=== PATIENT | female | born 1995 | race Caucasian/White ===

== ENCOUNTER 2017-01-05 13:25 | Emergency (ER) | payer MEDICAID, OTHER ==
[~2017-01-05] VITALS: Ht 157.5 cm; Wt 52.3 kg
[2017-01-05 13:52] LABS: BASOPHILS % (AUTO) 0.4 % (0.0-2.0); EOSINOPHILS % (AUTO) 1.4 % (1.0-6.0); HEMATOCRIT 36.8 % (36-46); HEMOGLOBIN 11.7 g/dL (12.0-16.0); LYMPHOCYTES # (AUTO) 1.8 K/uL (1.0-4.8); LYMPHOCYTES % (AUTO) 28.1 % (22.0-44.0); MEAN CORPUSCULAR HEMOGLOBIN 28.2 pg (26.0-34.0); MEAN CORPUSCULAR HGB CONC 31.8 G/dL (31.0-37.0); MEAN CORPUSCULAR VOLUME 88 fL (80-100); MONOCYTES # (AUTO) 0.4 K/uL (0.1-1.0); MONOCYTES % (AUTO) 5.6 % (2.0-9.0); NEUTROPHILS # (AUTO) 4.1 K/uL (1.8-7.7); NEUTROPHILS % (AUTO) 64.5 % (40.0-70.0); PLATELET COUNT (AUTO) 332 K/uL (150-450); RED BLOOD CELL COUNT(AUTO) 4.16 MIL/uL (4.00-5.20); RED CELL DISTRIBUTION WIDTH 15.1 % (11.5-14.5); WHITE BLOOD COUNT (AUTO) 6.3 K/uL (4.5-11.0)
[2017-01-05 14:01] LABS: ANION GAP 6 mmol/L (8-16); CALCIUM, TOTAL 9.4 mg/dL (8.8-10.5); CARBON DIOXIDE 30 mmol/L (22-29); CHLORIDE 104 mmol/L (98-107); GLOMERULAR FILTR. RATE CALC > 60 mL/min (>60); SODIUM SERUM 140 mmol/L (136-145); UREA NITROGEN, BLOOD 10 mg/dL (7-18)
[2017-01-05 14:07] LABS: ALANINE AMINOTRANSFERASE 24 U/L (12-78); ASPARTATE AMINOTRANSFERASE 14 U/L (15-37); BILIRUBIN,TOTAL 0.3 mg/dL (0.1-1.0); TOTAL PROTEIN, SERUM 7.7 g/dL (6.4-8.2)
[2017-01-05 18:51] VITALS: BP 110/64
== END 2017-01-05 18:53 | disposition home or self-care (01) ==
LOC: EEVIPCON 13:27 → EMS 13:27
DX: F32.9 Major depressive disorder, single episode, unspecified (principal); S61.512A Laceration without foreign body of left wrist, initial encounter; F17.210 Nicotine dependence, cigarettes, uncomplicated; X78.9XXA Intentional self-harm by unspecified sharp object, initial encounter; Y93.89 Activity, other specified; Y92.89 Other specified places as the place of occurrence of the external cause; Y99.8 Other external cause status
CPT/HCPCS: 36415; 80053; 80307; 84703; 85025; 99285; G0480

== ENCOUNTER 2017-10-01 22:34 | Emergency (ER) | payer SELFPAY ==
[~2017-10-01] VITALS: Ht 157.5 cm; Wt 56.8 kg
[2017-10-01] MEDS ORDERED: BACITRACIN 0.9 GM PACKET OINTMENT TP ONE (23:15)
[2017-10-01 23:46] VITALS: BP 119/68
== END 2017-10-01 23:52 | disposition home or self-care (01) ==
LOC: EMS 22:35
DX: S61.411A Laceration without foreign body of right hand, initial encounter (principal); S61.216A Laceration without foreign body of right little finger without damage to nail, initial encounter; S50.811A Abrasion of right forearm, initial encounter; F17.210 Nicotine dependence, cigarettes, uncomplicated; W25.XXXA Contact with sharp glass, initial encounter; Y93.89 Activity, other specified; Y92.89 Other specified places as the place of occurrence of the external cause; Y99.8 Other external cause status
CPT/HCPCS: 99284

== ENCOUNTER 2018-01-19 20:36 | Emergency (ER) | payer OTHER ==
[~2018-01-19] VITALS: Ht 157.5 cm; Wt 60.0 kg
[2018-01-19] MEDS ORDERED: KETOROLAC TROMETHAMINE 60 MG/2 ML VIAL IM ONE (22:00)
[2018-01-19 22:15] VITALS: BP 122/68
== END 2018-01-19 22:15 | disposition home or self-care (01) ==
LOC: EMS 20:37
DX: S46.911A Strain of unspecified muscle, fascia and tendon at shoulder and upper arm level, right arm, initial encounter (principal); F17.210 Nicotine dependence, cigarettes, uncomplicated; X58.XXXA Exposure to other specified factors, initial encounter; Y93.89 Activity, other specified; Y92.89 Other specified places as the place of occurrence of the external cause; Y99.8 Other external cause status
CPT/HCPCS: 81025; 96372; 99283; J1885

== ENCOUNTER 2018-06-06 16:32 | Emergency (ER) | payer OTHER ==
[~2018-06-06] VITALS: Ht 157.5 cm; Wt 59.1 kg
[2018-06-06 16:37] VITALS: BP 139/58
== END 2018-06-06 17:02 | disposition left against medical advice (07) ==
LOC: EMS 16:33
DX: R42 Dizziness and giddiness (principal); Z53.21 Procedure and treatment not carried out due to patient leaving prior to being seen by health care provider

== ENCOUNTER 2018-07-19 19:33 | Emergency (ER) | payer OTHER ==
[~2018-07-19] VITALS: Ht 157.5 cm; Wt 56.4 kg
[2018-07-19] MEDS ORDERED: DIAZEPAM 5 MG TABLET PO ONE (21:45)
[2018-07-19 22:15] VITALS: BP 127/78
== END 2018-07-19 22:34 | disposition home or self-care (01) ==
LOC: EMS 19:34
DX: F41.9 Anxiety disorder, unspecified (principal); H81.10 Benign paroxysmal vertigo, unspecified ear

== ENCOUNTER 2018-07-24 20:27 | Inpatient (IN) | payer MEDICAID, OTHER ==
[~2018-07-24] VITALS: Ht 157.5 cm; Wt 53.5 kg
[2018-07-24] MEDS ORDERED: MECL12.585 PO (20:47)
[2018-07-24 21:01] LABS: AMPHET/METH SCREEN,URINE NEGATIVE (NEGATIVE); BARBITURATE SCREEN, URINE NEGATIVE (NEGATIVE); BENZODIAZEPINES SCREEN,URINE POSITIVE (NEGATIVE); CANNABINOID SCREEN,URINE NEGATIVE (NEGATIVE); COCAINE SCREEN,URINE NEGATIVE (NEGATIVE); METHADONE SCREEN, URINE NEGATIVE (NEGATIVE); OPIATE SCREEN,URINE NEGATIVE (NEGATIVE); PHENCYCLIDINE SCREEN,URINE NEGATIVE (NEGATIVE)
[2018-07-24 21:06] LABS: BASOPHILS % (AUTO) 0.7 % (0.0-2.0); EOSINOPHILS % (AUTO) 1.3 % (1.0-6.0); HEMATOCRIT 37.6 % (36-46); HEMOGLOBIN 12.6 g/dL (12.0-16.0); LYMPHOCYTES # (AUTO) 1.7 K/uL (1.0-4.8); MEAN CORPUSCULAR HEMOGLOBIN 30.6 pg (26.0-34.0); MEAN CORPUSCULAR HGB CONC 33.6 G/dL (31.0-37.0); MEAN CORPUSCULAR VOLUME 91 fL (80-100); MONOCYTES # (AUTO) 0.4 K/uL (0.1-1.0); MONOCYTES % (AUTO) 5.8 % (2.0-9.0); NEUTROPHILS # (AUTO) 4.2 K/uL (1.8-7.7); NEUTROPHILS % (AUTO) 66.2 % (40.0-70.0); PLATELET COUNT (AUTO) 236 K/uL (150-450); RED BLOOD CELL COUNT(AUTO) 4.12 MIL/uL (4.00-5.20); RED CELL DISTRIBUTION WIDTH 13.5 % (11.5-14.5)
[2018-07-24 21:22] LABS: ANION GAP 12 mmol/L (8-16); CALCIUM, TOTAL 9.7 mg/dL (8.8-10.5); CARBON DIOXIDE 24 mmol/L (22-29); CHLORIDE 104 mmol/L (98-107); CREATININE 0.77 mg/dL (0.60-1.30); GLOMERULAR FILTR. RATE CALC > 60 mL/min (>60); GLUCOSE,RANDOM 113 mg/dL (70-110); POTASSIUM 3.4 mmol/L (3.5-5.1); SODIUM SERUM 140 mmol/L (136-145); UREA NITROGEN, BLOOD 5 mg/dL (7-18)
[2018-07-24 21:28] LABS: ALANINE AMINOTRANSFERASE 18 U/L (12-78); ALBUMIN 4.1 g/dL (3.4-5.0); ALKALINE PHOSPHATASE 53 U/L (46-116); ASPARTATE AMINOTRANSFERASE 13 U/L (15-37); BILIRUBIN,TOTAL 0.4 mg/dL (0.1-1.0); TOTAL PROTEIN, SERUM 7.6 g/dL (6.4-8.2)
[2018-07-24] MEDS ORDERED: LORazepam 2 MG TABLET PO ONE (21:30)
[2018-07-24 21:46] LABS: HCG,QUANTITATIVE < 1 mIU/mL (0-6)
[2018-07-24] MEDS ORDERED: POTASSIUM CHLORIDE 20 MEQ ER TABLET PO ONE (22:15)
[2018-07-25] MEDS ORDERED: HALOPERIDOL 5 MG TABLET PO PRN (01:15)
[2018-07-25] MEDS ORDERED: ZOLPIDEM TARTRATE 10 MG TABLET PO PRN (01:15)
[2018-07-25 03:26] LABS: APPEARANCE,URINE CLOUDY (CLEAR); BILIRUBIN,URINE NEGATIVE (NEGATIVE); GLUCOSE, URINE (UA) NEGATIVE (NEGATIVE); KETONES,URINE >=80 mg/dL (NEGATIVE); LEUKOCYTE ESTERASE ,URINE NEGATIVE (NEGATIVE); NITRATE,URINE NEGATIVE (NEGATIVE); OCCULT BLOOD,URINE NEGATIVE (NEGATIVE); PH,URINE 7.5 (5.0-8.0); PROTEIN,URINE NEGATIVE (NEGATIVE); UROBILINOGEN,URINE 0.2 mg/dL (<=1.0)
[2018-07-25 04:20] VITALS: BP 120/83
[2018-07-25 08:00] VITALS: BP 122/76
[2018-07-25] MEDS ORDERED: IBUPROFEN 400 MG TABLET PO PRN ×2 (09:00→10:45)
[2018-07-25] MEDS ORDERED: ACETAMINOPHEN 325 MG TABLET PO PRN ×2 (09:00→10:45)
[2018-07-25] MEDS ORDERED: DOCUSATE SODIUM 100 MG CAPSULE PO PRN (10:45)
[2018-07-25] MEDS ORDERED: NICOTINE 14 MG/24 HOUR PATCH TD PRN (10:45)
[2018-07-25] MEDS ORDERED: ONDANSETRON HCL 4 MG TABLET PO PRN (10:45)
[2018-07-25] MEDS ORDERED: MAGNESIUM HYDROXIDE SUSPENSION 30 ML UDCUP PO PRN (10:45)
[2018-07-25] MEDS ORDERED: GuaiFENesin/D-METHORPHAN [SUGAR-FREE] 200-20MG/10 ML SYRUP UDCUP PO PRN (10:45)
[2018-07-25] MEDS ORDERED: LOPERAMIDE HCL 2 MG CAPSULE PO PRN (10:45)
[2018-07-25] MEDS ORDERED: CloNIDine HCL 0.1 MG TABLET PO PRN (10:45)
[2018-07-25] MEDS ORDERED: PETROLATUM,WHITE 71 GM JELLY TP PRN (10:45)
[2018-07-25] MEDS ORDERED: MAG HYDROX/AL HYDROX/SIMETH ES 30 ML SUSPENSION UDCUP PO PRN (10:45)
[2018-07-25] MEDS ORDERED: ALBUTEROL SULFATE HFA 90 MCG/PUFF 8 GM INHALER IH PRN (10:45)
[2018-07-25] MEDS: LORazepam 2 MG TABLET PO PRN (11:31)
[2018-07-25] MEDS: OLANZapine 5 MG TABLET PO SCH (16:20)
[2018-07-25] MEDS: FLUoxetine HCL 20 MG CAPSULE PO SCH (16:20)
[2018-07-25 16:42] VITALS: BP 114/76
[2018-07-26 07:07] LABS: HEMOGLOBIN A1C 4.9 % (4.5-6.2)
[2018-07-26 07:42] LABS: ALANINE AMINOTRANSFERASE 15 U/L (12-78); ALBUMIN 3.6 g/dL (3.4-5.0); ALKALINE PHOSPHATASE 45 U/L (46-116); ANION GAP 7 mmol/L (8-16); ASPARTATE AMINOTRANSFERASE 14 U/L (15-37); BILIRUBIN,TOTAL 0.4 mg/dL (0.1-1.0); CALCIUM, TOTAL 8.8 mg/dL (8.8-10.5); CARBON DIOXIDE 28 mmol/L (22-29); CHLORIDE 107 mmol/L (98-107); CHOLESTEROL 141 mg/dL (131-200); CREATININE 0.87 mg/dL (0.60-1.30); GLOMERULAR FILTR. RATE CALC > 60 mL/min (>60); GLUCOSE,RANDOM 89 mg/dL (70-110); HDL CHOLESTEROL 35 mg/dL (40-60); LDL CHOL (CALC.) 84 mg/dL (0-130); POTASSIUM 4.1 mmol/L (3.5-5.1); SODIUM SERUM 142 mmol/L (136-145); THYROID STIMULATING HORMONE 0.66 uIU/mL (0.36-3.74); TOTAL PROTEIN, SERUM 6.7 g/dL (6.4-8.2); TRIGLYCERIDES 111 mg/dL (15-150); UREA NITROGEN, BLOOD 6 mg/dL (7-18)
[2018-07-26 08:28] VITALS: BP 109/79
[2018-07-26] MEDS: MECLIZINE HCL 12.5 MG TABLET PO SCH (09:00)
[2018-07-26] MEDS: FLUoxetine HCL 20 MG CAPSULE PO SCH (09:00)
[2018-07-26] MEDS: OLANZapine 5 MG TABLET PO SCH (09:00)
[2018-07-26 16:55] VITALS: BP 115/74
[2018-07-27] MEDS: LORazepam 2 MG TABLET PO PRN (00:47)
[2018-07-27 02:39] VITALS: BP 135/75
[2018-07-27] MEDS: OLANZapine 5 MG TABLET PO SCH (08:46)
[2018-07-27] MEDS: MECLIZINE HCL 12.5 MG TABLET PO SCH (08:46)
[2018-07-27] MEDS: FLUoxetine HCL 20 MG CAPSULE PO SCH (08:46)
[2018-07-27 17:04] VITALS: BP 124/89
[2018-07-28 08:00] VITALS: BP 117/81
[2018-07-28] MEDS: FLUoxetine HCL 20 MG CAPSULE PO SCH (09:02)
[2018-07-28] MEDS: MECLIZINE HCL 12.5 MG TABLET PO SCH (09:02)
[2018-07-28] MEDS: OLANZapine 5 MG TABLET PO SCH (09:02)
[2018-07-28 16:25] VITALS: BP 127/84
[2018-07-28] MEDS ORDERED: FLUO-191 PO (17:31)
[2018-07-28] MEDS ORDERED: OLAN5TAB2 PO (17:32)
== END 2018-07-28 18:00 | disposition home or self-care (01) | DRG 753 ==
LOC: EMS 20:28 → 3EC 07-25 02:27
PROVIDERS: ADMIT Psychiatry & Neurology Child & Adolescent Psychiatry; ATTEND Psychiatry & Neurology Child & Adolescent Psychiatry
DX: F31.4 Bipolar disorder, current episode depressed, severe, without psychotic features (principal); R45.851 Suicidal ideations; E87.6 Hypokalemia; F41.9 Anxiety disorder, unspecified; G47.00 Insomnia, unspecified; R42 Dizziness and giddiness
CPT/HCPCS: 83036; 84443; 93005; G0480

== ENCOUNTER 2018-07-31 17:26 | Inpatient (IN) | payer MEDICAID, OTHER ==
[~2018-07-31] VITALS: Ht 157.5 cm; Wt 50.1 kg
[~2018-07-31 17:26] MED LIST: FLUO-191 PO; MECL12.585 PO; OLAN5TAB2 PO
[2018-07-31] MEDS ORDERED: OLANZapine 5 MG TABLET PO ONE (18:30)
[2018-07-31 18:40] LABS: BASOPHILS % (AUTO) 0.4 % (0.0-2.0); EOSINOPHILS % (AUTO) 0.9 % (1.0-6.0); HEMATOCRIT 39.3 % (36-46); HEMOGLOBIN 13.3 g/dL (12.0-16.0); LYMPHOCYTES # (AUTO) 1.7 K/uL (1.0-4.8); LYMPHOCYTES % (AUTO) 17.4 % (22.0-44.0); MEAN CORPUSCULAR HEMOGLOBIN 31.1 pg (26.0-34.0); MEAN CORPUSCULAR HGB CONC 33.9 G/dL (31.0-37.0); MEAN CORPUSCULAR VOLUME 92 fL (80-100); MONOCYTES # (AUTO) 0.6 K/uL (0.1-1.0); MONOCYTES % (AUTO) 6.1 % (2.0-9.0); NEUTROPHILS # (AUTO) 7.1 K/uL (1.8-7.7); NEUTROPHILS % (AUTO) 75.2 % (40.0-70.0); PLATELET COUNT (AUTO) 327 K/uL (150-450); RED BLOOD CELL COUNT(AUTO) 4.28 MIL/uL (4.00-5.20); RED CELL DISTRIBUTION WIDTH 13.7 % (11.5-14.5)
[2018-07-31] MEDS ORDERED: LORazepam 2 MG TABLET PO ONE (18:45)
[2018-07-31 18:47] LABS: ANION GAP 17 mmol/L (8-16); CALCIUM, TOTAL 9.9 mg/dL (8.8-10.5); CARBON DIOXIDE 21 mmol/L (22-29); CHLORIDE 101 mmol/L (98-107); CREATININE 0.87 mg/dL (0.60-1.30); GLOMERULAR FILTR. RATE CALC > 60 mL/min (>60); GLUCOSE,RANDOM 86 mg/dL (70-110); POTASSIUM 4.6 mmol/L (3.5-5.1); SODIUM SERUM 139 mmol/L (136-145); UREA NITROGEN, BLOOD 16 mg/dL (7-18)
[2018-07-31 18:53] LABS: ALANINE AMINOTRANSFERASE 24 U/L (12-78); ALBUMIN 4.6 g/dL (3.4-5.0); ALKALINE PHOSPHATASE 60 U/L (46-116); ASPARTATE AMINOTRANSFERASE 18 U/L (15-37); BILIRUBIN,TOTAL 0.7 mg/dL (0.1-1.0); TOTAL PROTEIN, SERUM 8.3 g/dL (6.4-8.2)
[2018-07-31 21:55] VITALS: BP 115/62
[2018-08-01 06:04] VITALS: BP 110/72
[2018-08-01 08:18] VITALS: BP 109/62
[2018-08-01] MEDS ORDERED: MECLIZINE HCL 12.5 MG TABLET PO SCH (10:30)
[2018-08-01] MEDS: OLANZapine 5 MG TABLET PO SCH (10:30)
[2018-08-01] MEDS: FLUoxetine HCL 20 MG CAPSULE PO SCH (10:45)
[2018-08-01] MEDS ORDERED: PIPERONYL BUTOXIDE/PYRETHRINS 120 ML SHAMPOO TP ONE (13:30)
[2018-08-01] MEDS ORDERED: CloNIDine HCL 0.1 MG TABLET PO PRN (14:15)
[2018-08-01] MEDS ORDERED: IBUPROFEN 400 MG TABLET PO PRN (14:15)
[2018-08-01] MEDS ORDERED: DOCUSATE SODIUM 100 MG CAPSULE PO PRN (14:15)
[2018-08-01] MEDS ORDERED: NICOTINE 14 MG/24 HOUR PATCH TD PRN (14:15)
[2018-08-01] MEDS ORDERED: GuaiFENesin/D-METHORPHAN [SUGAR-FREE] 200-20MG/10 ML SYRUP UDCUP PO PRN (14:15)
[2018-08-01] MEDS ORDERED: MAG HYDROX/AL HYDROX/SIMETH ES 30 ML SUSPENSION UDCUP PO PRN (14:15)
[2018-08-01] MEDS ORDERED: LOPERAMIDE HCL 2 MG CAPSULE PO PRN (14:15)
[2018-08-01] MEDS ORDERED: PETROLATUM,WHITE 71 GM JELLY TP PRN (14:15)
[2018-08-01] MEDS ORDERED: ACETAMINOPHEN 325 MG TABLET PO PRN (14:15)
[2018-08-01] MEDS ORDERED: ONDANSETRON HCL 4 MG TABLET PO PRN (14:15)
[2018-08-01] MEDS ORDERED: MAGNESIUM HYDROXIDE SUSPENSION 30 ML UDCUP PO PRN (14:15)
[2018-08-01] MEDS ORDERED: ALBUTEROL SULFATE HFA 90 MCG/PUFF 8 GM INHALER IH PRN (14:15)
[2018-08-01 16:17] VITALS: BP 110/64
[2018-08-01] MEDS: LORazepam 2 MG TABLET PO PRN (20:24)
[2018-08-02 07:12] VITALS: BP 108/68
[2018-08-02 08:28] VITALS: BP 107/75
[2018-08-02] MEDS: OLANZapine 5 MG TABLET PO SCH (08:40)
[2018-08-02] MEDS: FLUoxetine HCL 20 MG CAPSULE PO SCH (08:40)
[2018-08-02] MEDS: LORazepam 2 MG TABLET PO PRN (08:49)
[2018-08-02 16:42] VITALS: BP 125/76
[2018-08-02] MEDS: ZOLPIDEM TARTRATE 10 MG TABLET PO PRN (22:31)
[2018-08-03] MEDS: LORazepam 2 MG TABLET PO PRN ×2 (00:59→08:53)
[2018-08-03 01:29] VITALS: BP 119/75
[2018-08-03 08:35] VITALS: BP 125/83
[2018-08-03] MEDS: HALOPERIDOL 5 MG TABLET PO PRN (08:53)
[2018-08-03] MEDS: FLUoxetine HCL 20 MG CAPSULE PO SCH (08:54)
[2018-08-03] MEDS: OLANZapine 5 MG TABLET PO SCH (08:54)
[2018-08-03 19:00] VITALS: BP 123/74
[2018-08-04 06:34] VITALS: BP 116/82
[2018-08-04] MEDS: HALOPERIDOL 5 MG TABLET PO PRN (08:19)
[2018-08-04] MEDS: OLANZapine 5 MG TABLET PO SCH (08:19)
[2018-08-04] MEDS: LORazepam 2 MG TABLET PO PRN ×2 (08:19→22:13)
[2018-08-04] MEDS: FLUoxetine HCL 20 MG CAPSULE PO SCH (08:19)
[2018-08-04 08:30] VITALS: BP 116/69
[2018-08-04 16:06] VITALS: BP_SYST 108; BP_SYST 124; BP_DIAS 71; BP_DIAS 72
[2018-08-04] MEDS: ZOLPIDEM TARTRATE 10 MG TABLET PO PRN (22:13)
[2018-08-05 04:45] VITALS: BP 112/70
[2018-08-05 08:14] VITALS: BP 107/65
[2018-08-05] MEDS: OLANZapine 5 MG TABLET PO SCH (08:50)
[2018-08-05] MEDS: FLUoxetine HCL 20 MG CAPSULE PO SCH (08:50)
[2018-08-05 16:07] VITALS: BP 111/65
[2018-08-05] MEDS: LORazepam 2 MG TABLET PO PRN (18:52)
[2018-08-06 06:33] VITALS: BP 126/74
[2018-08-06 08:23] VITALS: BP 116/71
[2018-08-06] MEDS: OLANZapine 5 MG TABLET PO SCH (09:06)
[2018-08-06] MEDS: FLUoxetine HCL 20 MG CAPSULE PO SCH (09:06)
[2018-08-06] MEDS ORDERED: PIPERONYL BUTOXIDE/PYRETHRINS 120 ML SHAMPOO TP ONE (11:45)
[2018-08-06] MEDS: LORazepam 2 MG TABLET PO PRN (13:24)
[2018-08-06 16:04] VITALS: BP_SYST 112; BP_DIAS 69; BP_DIAS 80
[2018-08-06] MEDS: ZOLPIDEM TARTRATE 10 MG TABLET PO PRN (20:25)
[2018-08-07] VITALS: BP 131/80
[2018-08-07] MEDS: LORazepam 2 MG TABLET PO PRN ×2 (00:41→08:35)
[2018-08-07 08:21] VITALS: BP 112/73
[2018-08-07] MEDS: OLANZapine 5 MG TABLET PO SCH (08:35)
[2018-08-07] MEDS: FLUoxetine HCL 20 MG CAPSULE PO SCH (08:35)
[2018-08-07] MEDS ORDERED: FLUO20CA30 PO (12:58)
[2018-08-08] MEDS ORDERED: FLUoxetine HCL 20 MG CAPSULE PO SCH (09:00)
== END 2018-08-07 15:39 | disposition home or self-care (01) | DRG 753 ==
LOC: EMS 17:27 → B3A 19:56
PROVIDERS: ADMIT Psychiatry & Neurology Psychiatry; ATTEND Psychiatry & Neurology Child & Adolescent Psychiatry
DX: F31.9 Bipolar disorder, unspecified (principal); F29 Unspecified psychosis not due to a substance or known physiological condition; R10.13 Epigastric pain; R42 Dizziness and giddiness; F41.9 Anxiety disorder, unspecified; G47.00 Insomnia, unspecified; Z79.899 Other long term (current) drug therapy
CPT/HCPCS: 87081; G0480

== ENCOUNTER 2018-08-08 22:06 | Emergency (ER) | payer MEDICAID, OTHER ==
[~2018-08-08] VITALS: Ht 157.5 cm; Wt 50.9 kg
[~2018-08-08 22:06] MED LIST changes: -FLUO-191 PO; +FLUO20CA30 PO; -MECL12.585 PO
[2018-08-08] MEDS: OLANZapine 5 MG TABLET PO ONE (23:49)
[2018-08-08] MEDS: LORazepam 2 MG TABLET PO ONE (23:49)
[2018-08-09 01:30] VITALS: BP 104/71
== END 2018-08-09 01:30 | disposition home or self-care (01) ==
LOC: EMS 22:07
DX: F41.9 Anxiety disorder, unspecified (principal); R42 Dizziness and giddiness; F31.9 Bipolar disorder, unspecified

== ENCOUNTER 2021-07-03 09:07 | Emergency (ER) | payer OTHER ==
[~2021-07-03] VITALS: Ht 157.5 cm; Wt 81.8 kg
[~2021-07-03 09:07] MED LIST changes: -OLAN5TAB2 PO; +OLAN5TAB52 PO
[2021-07-03 10:06] LABS: BASOPHILS % (AUTO) 0.3 % (0.0-2.0); EOSINOPHILS % (AUTO) 2.8 % (1.0-6.0); HEMATOCRIT 39.5 % (36-46); HEMOGLOBIN 12.9 g/dL (12.0-16.0); LYMPHOCYTES # (AUTO) 1.9 K/uL (1.0-4.8); LYMPHOCYTES % (AUTO) 29.3 % (22.0-44.0); MEAN CORPUSCULAR HEMOGLOBIN 30.9 pg (26.0-34.0); MEAN CORPUSCULAR HGB CONC 32.7 G/dL (31.0-37.0); MEAN CORPUSCULAR VOLUME 95 fL (80-100); MONOCYTES # (AUTO) 0.3 K/uL (0.1-1.0); NEUTROPHILS # (AUTO) 4.1 K/uL (1.8-7.7); NEUTROPHILS % (AUTO) 62.6 % (40.0-70.0); PLATELET COUNT (AUTO) 313 K/uL (150-450); RED BLOOD CELL COUNT(AUTO) 4.18 MIL/uL (4.00-5.20); RED CELL DISTRIBUTION WIDTH 13.3 % (11.5-14.5)
[2021-07-03 10:14] LABS: ANION GAP 6 mmol/L (8-16); CALCIUM, TOTAL 9.4 mg/dL (8.8-10.5); CARBON DIOXIDE 27 mmol/L (22-29); CHLORIDE 105 mmol/L (98-107); CREATININE 0.71 mg/dL (0.60-1.30); GLOMERULAR FILTR. RATE CALC > 60 mL/min (>60); GLUCOSE,RANDOM 104 mg/dL (70-110); POTASSIUM 4.8 mmol/L (3.5-5.1); SODIUM SERUM 138 mmol/L (136-145); UREA NITROGEN, BLOOD 9 mg/dL (7-18)
[2021-07-03 10:35] LABS: ALANINE AMINOTRANSFERASE 23 U/L (12-78); ALBUMIN 3.7 g/dL (3.4-5.0); ALKALINE PHOSPHATASE 69 U/L (46-116); ASPARTATE AMINOTRANSFERASE 16 U/L (15-37); BILIRUBIN,TOTAL 0.2 mg/dL (0.1-1.0); LIPASE 102 U/L (73-393); TOTAL PROTEIN, SERUM 7.6 g/dL (6.4-8.2)
[2021-07-03 11:13] LABS: HCG,QUANTITATIVE < 1 mIU/mL (0-6)
[2021-07-03 11:52] LABS: BILIRUBIN,URINE NEGATIVE (NEGATIVE); GLUCOSE, URINE (UA) NEGATIVE (NEGATIVE); KETONES,URINE NEGATIVE (NEGATIVE); LEUKOCYTE ESTERASE ,URINE SMALL (NEGATIVE); NITRATE,URINE NEGATIVE (NEGATIVE); OCCULT BLOOD,URINE NEGATIVE (NEGATIVE); PROTEIN,URINE NEGATIVE (NEGATIVE); UROBILINOGEN,URINE 0.2 mg/dL (<=1.0)
[2021-07-03 11:54] LABS: APPEARANCE,URINE SLIGHTLY CLOUDY (CLEAR)
[2021-07-03 12:01] LABS: BACTERIA,URINE Many /HPF (None Seen); RBC,URINE None Seen /HPF (0-2); SQUAMOUS EPITHELIAL CELL,UR Moderate /LPF (None Seen)
[2021-07-03 12:17] VITALS: BP 121/85
== END 2021-07-03 12:20 | disposition home or self-care (01) ==
LOC: EMS 09:11
DX: R10.30 Lower abdominal pain, unspecified (principal); F31.9 Bipolar disorder, unspecified
CPT/HCPCS: 76856; 80053; 81001; 83690; 84702; 85025; 87086; 99284